=== PATIENT | male | born 1970 | race Hispanic/Latino ===

== ENCOUNTER 2018-10-25 12:00 | Inpatient (IN) | payer MEDICAID, MEDICARE, OTHER ==
[2018-10-25 13:41] LABS: BASO # 0.1 K/uL (0.0-0.2); BASO % 1.2 % (0.0-2.0); EOS # 0.1 K/uL (0.0-0.7); EOS % 1.2 % (0.0-4.0); HEMOGLOBIN 15.6 g/dL (12.0-18.0); LYMPH # 2.1 K/uL (1.0-4.3); LYMPH % 23.6 % (20.0-40.0); MEAN CELL VOLUME 95.8 fL (80.0-94.0); MEAN CORPUSCULAR HEMOGLOBIN 33.2 pg (27.0-31.0); MEAN CORPUSCULAR HGB CONC 34.6 g/dL (33.0-37.0); MEAN PLATELET VOLUME 8.7 fL (7.2-11.7); MONO # 0.6 K/uL (0.0-0.8); MONO % 6.1 % (0.0-10.0); NEUT # 6.2 K/uL (1.8-7.0); NEUT % 67.9 % (50.0-75.0); RBC 4.69 Mil/uL (4.40-5.90); RED CELL DISTRIBUTION WIDTH 13.9 % (11.5-14.5); WHITE BLOOD COUNT 9.1 K/uL (4.8-10.8)
[2018-10-25 13:43] LABS: SQUAMOUS EPITHIAL < 1 /hpf (0-5); URINE BACTERIA OCC (<OCC); URINE BILIRUBIN NEGATIVE (NEGATIVE); URINE BLOOD NEGATIVE (NEGATIVE); URINE CLARITY Clear (Clear); URINE COLOR Yellow (YELLOW); URINE GLUCOSE (UA) NORMAL (Normal); URINE LEUKOCYTE ESTERASE NEG Leu/uL (Negative); URINE PROTEIN 1+ mg/dL (NEGATIVE)
[2018-10-25 13:56] LABS: ALB/GLOB RATIO 1.4 (1.0-2.1); ALBUMIN 4.7 g/dL (3.5-5.0); ALT/SGPT 23 U/L (21-72); AST/SGOT 29 U/L (17-59); BLOOD UREA NITROGEN 21 mg/dL (9-20); CALCIUM 9.9 mg/dl (8.6-10.4); GFR NON-AFRICAN AMERICAN > 60
[2018-10-25 14:00] LABS: BARBITURATES, UR NEGATIVE (NEGATIVE); BENZODIAZEPINES, UR NEGATIVE (NEGATIVE); OPIATES, UR NEGATIVE (NEGATIVE); PHENCYCLIDINE, UR NEGATIVE (NEGATIVE)
--- NOTE | 2018-10-25 15:37 | C.PDOC ---
Chief Complaint (Nursing): Psychiatric Evaluation Past Medical History Vital Signs: Last Vital Signs Temp 98 F 10/25/18 12:34 Pulse 110 H 10/25/18 12:34 Resp 20 10/25/18 12:34 BP 99/63 L 10/25/18 12:34 Pulse Ox 99 10/25/18 12:34 - Medical History PMH: Depression Denies: Diabetes, Hepatitis, HIV, HTN, Chronic Kidney Disease, Seizures, Sexually Transmitted Disease Surgical History: Appendectomy - [facility] Procedures GROUP PSYCHOTHERAPY (09/21/18) INDIVIDUAL PSYCHOTHERAPY, COGNITIVE-BEHAVIORAL (09/21/18) INDIVIDUAL PSYCHOTHERAPY, SUPPORTIVE (09/21/18) REPOSITION RIGHT METACARPAL, EXTERNAL APPROACH (09/21/18) Family History: States: Unknown Family Hx - Social History Hx Alcohol Use: No Hx Substance Use: Yes - Immunization History Hx Tetanus Toxoid Vaccination: No Hx Influenza Vaccination: No Hx Pneumococcal Vaccination: No ED Course And Treatment - Laboratory Results Result Diagrams: 10/25/18 13:31 10/25/18 13:31 Lab Results: Total Bilirubin 0.6 mg/dL (0.2-1.3) 10/25/18 13:31 AST 29 U/L (17-59) 10/25/18 13:31 ALT 23 U/L (21-72) 10/25/18 13:31 Alkaline Phosphatase 81 U/L (38-126) 10/25/18 13:31 Total Protein 8.1 g/dL (6.3-8.3) 10/25/18 13:31 Albumin 4.7 g/dL (3.5-5.0) 10/25/18 13:31 Globulin 3.4 gm/dL (2.2-3.9) 10/25/18 13:31 Albumin/Globulin Ratio 1.4 (1.0-2.1) 10/25/18 13:31 Urine Color Yellow (YELLOW) 10/25/18 13:31 Urine Clarity Clear (Clear) 10/25/18 13:31 Urine pH 6.0 (5.0-8.0) 10/25/18 13:31 Ur Specific [place] 1.023 (1.003-1.030) 10/25/18 13:31 Urine Protein 1+ mg/dL (NEGATIVE) H 10/25/18 13:31 Urine Glucose (UA) Normal mg/dL (Normal) 10/25/18 13:31 Urine Ketones 1+ mg/dL (NEGATIVE) H 10/25/18 13:31 Urine Blood Negative (NEGATIVE) 10/25/18 13:31 Urine Nitrate Negative (NEGATIVE) 10/25/18 13:31 Urine Bilirubin Negative (NEGATIVE) 10/25/18 13:31 Urine Urobilinogen 2.0 mg/dL (0.2-1.0) 10/25/18 13:31 Ur Leukocyte Esterase Neg [place]/uL (Negative) 10/25/18 13:31 Urine WBC (Auto) 2 /hpf (0-5) 10/25/18 13:31 Urine RBC (Auto) < 1 /hpf (0-3) 10/25/18 13:31 Ur Squamous Epith Cells < 1 /hpf (0-5) 10/25/18 13:31 Urine Bacteria Occ (<OCC) H 10/25/18 13:31 O2 Sat by Pulse Oximetry: 99 Progress Note: Patient was medically cleared and is stable for psych admission Disposition - Disposition Disposition: HOSPITALIZED Disposition Time: 15:36 Condition: STABLE - Clinical Impression Clinical Impression: Depression Decision To Admit - Pt Status Changed To: Hospital Disposition Of: Inpatient - Admit Certification Admit to Inpatient:: After my assessment, the patient will require hospitalization for at least two midnights. This is because of the severity of symptoms shown, intensity of services needed, and/or the medical risk in this patient being treated as an outpatient. - InPatient: Physician Admission Certification: I certify that this patient requires 2 or more midnights of care for the following reason:: Patient will need more than 2 days of an admission - . Bed Request Type: Psychiatry Admitting Physician: Akhil Van Patient Diagnosis: Depression
--- NOTE | 2018-10-25 18:10 | PCM.BM ---
<Rick Meyer - Last Filed: 10/25/18 18:08> Treatment Plan Problems - Problems identified on initial assessmt Depression Date Initiated: 10/25/18 Time Initiated: 18:08 Assessment reference: NA Status: Active Treatment assets and liabiliti Patient Assests: cooperative, self-reliant, ADL independent, negotiates basic needs Patient Liabilities: financial problems (On disability), poor support system, substance abuse, medical problems (Memory problems ) - Milieu Protocol Maintain good personal hygiene: daily Encourage regular showers, daily Remind patient to perform daily oral care, every shift Assist patient to perform ADL's Conduct patient checks and document Observation sheet: Q15 minutes (For safety) Maintain personal safety: every shift Educate patient to report safety concerns to staff, every shift Monitor environment for contraband/sharps Medication safety: Monitor for expected outcome, potential side effects: every shift, Assess barriers to learning: every shift, Assess readiness for medication education: every shift <Kalani Duncan - Last Filed: 10/26/18 12:19> Family Contact Family involvement: Patient does not wish Family/SO involvement Family contact: Patient declines to allow family contact at present - Goals for Treatment Patient goals for treatment: "I want to go to an outpatient program." Discharge/Continuing Care - Education Needs Education Needs: Patient Medication, Patient Diagnosis/Disease Process, Patient Coping Skills, Patient Placement options, Patient Community resources - Discharge Discharge Criteria: Free of Suicidal thoughts, Normal sleep pattern, Ability to care for self, Reduction of target symptoms Discharge to:: Halfway - Treatment Team Participation Discussed with Family/SO: No Was Patient/Family/SO present at Treatment Team Meeting: Yes <Akhil Van - Last Filed: 10/28/18 10:13> - Diagnosis (1) Depression Status: Acute Interventions: 10/28/18 10:13 * Assess/adjust medications daily and /or as needed * See patient on an individual basis 7x/week to assess symptoms of depression * Monitor for side effects & effectiveness of medications *
[2018-10-25 18:42] VITALS: O2SAT 99
[2018-10-25] MEDS: Hydrocortisone 1% Cream (30 GM) TOP PRN (22:02)
--- NOTE | 2018-10-25 22:55 | C.PDOC ---
History Of Present Illness 48 year old male presents to the ED for psychiatric evaluation of depression and suicidal ideation. Patient states he was placed on psychiatric medications (cannot recall names) which were stolen, and he has not taken his medications in more than one month. Patient denies suicidal plan or homicidal ideation at this time. Chief Complaint (Nursing): Psychiatric Evaluation History Per: Patient History/Exam Limitations: no limitations Onset/Duration Of Symptoms: Days Current Symptoms Are (Timing): Still Present Suicide/Self Injury Attempted (Context): None Associated Symptoms: Suicidal Thoughts. denies: Suicidal Plan Involuntary Hold By: None Recent travel outside of the [place]: No Additional History Per: Patient Past Medical History Reviewed: Historical Data, Nursing Documentation, Vital Signs Vital Signs: Last Vital Signs Temp 98.6 F 10/25/18 15:57 Pulse 82 10/25/18 15:57 Resp 18 10/25/18 15:57 BP 101/65 10/25/18 15:57 Pulse Ox 99 10/25/18 18:42 - Medical History PMH: Depression Denies: Diabetes, Hepatitis, HIV, HTN, Chronic Kidney Disease, Seizures, Sexually Transmitted Disease Surgical History: Appendectomy - [facility] Procedures GROUP PSYCHOTHERAPY (09/21/18) INDIVIDUAL PSYCHOTHERAPY, COGNITIVE-BEHAVIORAL (09/21/18) INDIVIDUAL PSYCHOTHERAPY, SUPPORTIVE (09/21/18) REPOSITION RIGHT METACARPAL, EXTERNAL APPROACH (09/21/18) Family History: States: Unknown Family Hx - Social History Hx Alcohol Use: No Hx Substance Use: Yes - Immunization History Hx Tetanus Toxoid Vaccination: No Hx Influenza Vaccination: No Hx Pneumococcal Vaccination: No Review Of Systems Psych: Positive for: Suicidal ideation. Negative for: Other (suicidal plan or homicidal ideation ) Physical Exam - Physical Exam Appears: Non-toxic, No Acute Distress Skin: Normal Color, Warm, Dry Head: Atraumatic, Normacephalic Eye(s): bilateral: Normal Inspection Oral Mucosa: Moist Chest: Symmetrical, No Deformity Cardiovascular: Rhythm Regular, No Murmur Respiratory: Normal Breath Sounds, No Rales, No Rhonchi, No Wheezing Extremity: Normal ROM Neurological/Psych: Oriented x3, Normal Speech, Normal Cognition ED Course And Treatment - Laboratory Results Result Diagrams: 10/25/18 13:31 10/25/18 13:31 Lab Results: Total Bilirubin 0.6 mg/dL (0.2-1.3) 10/25/18 13:31 AST 29 U/L (17-59) 10/25/18 13:31 ALT 23 U/L (21-72) 10/25/18 13:31 Alkaline Phosphatase 81 U/L (38-126) 10/25/18 13:31 Total Protein 8.1 g/dL (6.3-8.3) 10/25/18 13:31 Albumin 4.7 g/dL (3.5-5.0) 10/25/18 13:31 Globulin 3.4 gm/dL (2.2-3.9) 10/25/18 13:31 Albumin/Globulin Ratio 1.4 (1.0-2.1) 10/25/18 13:31 Urine Color Yellow (YELLOW) 10/25/18 13:31 Urine Clarity Clear (Clear) 10/25/18 13:31 Urine pH 6.0 (5.0-8.0) 10/25/18 13:31 Ur Specific [place] 1.023 (1.003-1.030) 10/25/18 13:31 Urine Protein 1+ mg/dL (NEGATIVE) H 10/25/18 13:31 Urine Glucose (UA) Normal mg/dL (Normal) 10/25/18 13:31 Urine Ketones 1+ mg/dL (NEGATIVE) H 10/25/18 13:31 Urine Blood Negative (NEGATIVE) 10/25/18 13:31 Urine Nitrate Negative (NEGATIVE) 10/25/18 13:31 Urine Bilirubin Negative (NEGATIVE) 10/25/18 13:31 Urine Urobilinogen 2.0 mg/dL (0.2-1.0) 10/25/18 13:31 Ur Leukocyte Esterase Neg [place]/uL (Negative) 10/25/18 13:31 Urine WBC (Auto) 2 /hpf (0-5) 10/25/18 13:31 Urine RBC (Auto) < 1 /hpf (0-3) 10/25/18 13:31 Ur Squamous Epith Cells < 1 /hpf (0-5) 10/25/18 13:31 Urine Bacteria Occ (<OCC) H 10/25/18 13:31 O2 Sat by Pulse Oximetry: 99 (on RA) Pulse Ox Interpretation: Normal Progress Note: Bloodwork and urinalysis were ordered and reviewed. Patient has been medically cleared and accepted by Dr. Van for further evaluation. Disposition - Disposition Disposition: HOSPITALIZED Disposition Time: 15:35 Condition: STABLE - Clinical Impression Clinical Impression: Depression - PA / CULTURE MANAGER / Resident Statement MD/DO has reviewed & agrees with the documentation as recorded. - Scribe Statement The provider has reviewed the documentation as recorded by the Scribe (Tennille Marina) All medical record entries made by the Scribe were at my direction and personall y dictated by me. I have reviewed the chart and agree that the record accurately reflects my personal performance of the history, physical exam, medical decision making, and the department course for this patient. I have also personally directed, reviewed, and agree with the discharge instructions and disposition.
--- NOTE | 2018-10-26 13:01 | PCM.PSYCH ---
Initial Psychiatric Evaluation - Initial Psychiatric Evaluation Type of Admission: Voluntary Legal Status: Capacity Chief Complaint (in patient's own words): "I was feeling depressed, can't focus, and thought of laying down on the train tracks to kill myself" History of Present Illness and Precipitating Events: 48 year old male, who has a girlfriend, is unemployed and homeless presents to the ED for suicidal thoughts. Pt has a history of Bipolar Disorder and reports two inpatient psychiatric hospitalizations previously. Pt reports that he has been feeling this way since 2-3 weeks ago when he lost his medication. He states that he wanted to kill himself by laying down on the train tracks but decided against it and came to the hospital to get help and medication. Pt states he is currently with a girlfriend who has not been supportive in his attempts to secure housing. Pt states he is sick of being homeless and wants to change. Pt states he is good at listening to directions and therefore knows he can change. Pt wants help for his lack of focus and depressed mood. Pt states he can't focus and is feeling depressed and down. Pt appears anxious and speech is pressured. Pt denies feeling irritated, denies auditory or visual hallucinations, paranoia, denies alcohol or drug abuse. Past Psych Hx: Depression, Bipolar, Disorder PMH: denies Meds: Depakote, Trazadone Current Medications: Active Medications Generic Name Dose Route Start Last Admin Trade Name Freq PRN Reason Stop Dose Admin Gabapentin 100 mg 10/26/18 08:41 10/26/18 09:45 Neurontin PO 100 mg TID PRN Administration Anxiety Hydrocortisone 1 gm 10/25/18 20:00 10/25/18 22:02 Cortizone 1% Cream TOP 1 applic Q6 PRN Administration Itching / Pruritus Hydroxyzine HCl 25 mg 10/25/18 22:00 10/25/18 22:02 Atarax PO 25 mg Q6 PRN Administration Anxiety Influenza Virus Vaccine 60 mcg 10/27/18 10:00 Flucelvax Quad [id number] Syr IM 10/27/18 10:01 .ONCE ONE Oxcarbazepine 300 mg 10/26/18 10:00 10/26/18 09:45 Trileptal PO 300 mg DAILY JAIME Administration Oxcarbazepine 300 mg 10/26/18 22:00 Trileptal PO HS JAIME Pneumococcal Polyvalent Vaccine 0.5 ml 10/27/18 10:00 Pneumovax 23 Vaccine IM 10/27/18 10:01 .ONCE ONE Quetiapine Fumarate 50 mg 10/26/18 22:00 Seroquel PO HS [facility] Trazodone HCl 50 mg 10/25/18 22:00 10/25/18 21:56 Desyrel PO 50 mg HS [facility] Administration Past Psychiatric History - Past Psychiatric History Previous Treatment History: Inpatient Pertinent Medical Hx (Current Medical&Sleep Prob, Allergies): Allergies Allergy/AdvReac Type Severity Reaction Status Date / Time No Known Allergies Allergy Verified 10/14/18 13:38 Donepezil [Aricept] 5 mg PO HS 30 Days #30 tab 08/22/18 Gabapentin [Neurontin] 100 mg PO TID PRN 30 Days #90 cap 08/22/18 OXcarbazepine [Trileptal] 300 mg PO DAILY 30 Days #30 tab 08/22/18 OXcarbazepine [Trileptal] 300 mg PO HS 30 Days #30 tab 08/22/18 traZODone [Desyrel] 50 mg PO HS 30 Days #30 tab 08/22/18 DiphenhydrAMINE [Benadryl] 50 mg PO DAILY #30 cap 09/30/18 QUEtiapine [SEROquel] 50 mg PO HS #30 tab 09/30/18 traZODone [Desyrel] 100 mg PO HS PRN #30 tab 09/30/18 Permethrin [Elimite] 60 gm TP ONCE #1 cream..g. 10/14/18 Review of Systems - Review of Systems All systems: reviewed and no additional remarkable complaints except - Psychiatric Psychiatric: Anxiety, Irritability, Suicidal Ideation Mental Status Examination - Personal Presentation Personal Presentation: Looks stated age - Affect Affect: Constricted, Depressed - Motor Activity Motor Activity: Calm - Reliability in Providing Information Reliability in Providing Information: Fair - Speech Speech: Organized - Mood Mood: Depressed, Anxious - Formal Thought Process Formal Thought Process: No Impairment - Obsessions/Compulsions Obsessions: No Compulsions: No - Cognitive Functions Orientation: Person, Place, Situation, Time Sensorium: Alert Attention/Concentration: Attentive Abstract Thinking: [place] Estimate of Intelligence: Below average Judgement: Imparied, as evidence by: Poor judgement, Imparied, as evidence by: Lack of insight into illness - Risk Risk: Suicidal, Diminished functioning - Limitations Limitations: Living alone DSM 5 DX - DSM 5 DSM 5 Diagnosis: Bipolar depressed severe without psychotic features - Recommended/Plan of Treatment Treatment Recommendations and Plan of Treatment: Bipolar depressed severe without psychotic features CBT Psychoeducation Supportive therapy and group therapy and milieu therapy Trazodone 50 mg p.o. nightly Hydroxyzine 25 mg p.o. every 6 hours as needed Gabapentin 100 mg p.o. 3 times daily Trileptal 150 mg p.o. twice daily Remeron 15 mg p.o. nightly - Smoking Cessation Smoking Cessation Initiated: No
[2018-10-26] MEDS: Hydrocortisone 1% Cream (30 GM) TOP PRN (13:43)
[2018-10-26] MEDS ORDERED: Vitamins A & D Oint UD Foilpak TOP PRN (19:41)
[2018-10-27] MEDS ORDERED: Influenza Vaccine 60 mcg/0.5 mL SYR (4YR UP) IM ONE (10:00)
[2018-10-27] MEDS ORDERED: Pneumococcal 23-Valent Vaccine IM ONE (10:00)
--- NOTE | 2018-10-27 14:33 | PCM.PYCHPN ---
Psychiatric Progress Note - Psychiatric Progress Note Patient seen today, length of contact: 16 min Patient Chief Complaint: "I was feeling depressed." Problems Identified/Issues Discussed: Patient was seen and evaluated, chart reviewed and discussed the staff. Patient reports depressed mood, at times feelings of hopelessness and helplessness. He reports some improvement in his irritability and agitation. He reports that he is developing a rash from a medication. However he denies any other reactions from the medications He denies any auditory hallucinations or any paranoia. Symptoms are improving gradually but he needs more time to stabilize. Supportive therapy was given Medication Change: Yes Medical Record Reviewed: Yes Mental Status Examination - Cognitive Function Orientation: Person, Place, Situation, Time Memory: Intact Attention: WNL Concentration: Poor Association: WNL Fund of Knowledge: Poor - Mood Mood: Depressed, Anxious - Affect Affect: Constricted, Depressed - Speech Speech: Soft - Formal Thought Process Formal Thought Process: No Impairment - Suicidal Ideation Suicidal Ideation: No - Homicidal Ideation Homicidal Ideation: No Goal/Treatment Plan - Goal/Treatment Plan Need for Continued Stay: Severe depression anxiety, Severe functional impairment Progress Toward Problem(s) and Goals/Treatment Plan: Bipolar depressed severe without psychotic features CBT Psychoeducation Supportive therapy and group therapy and milieu therapy Trazodone 50 mg p.o. nightly Hydroxyzine 25 mg p.o. every 6 hours as needed Gabapentin 100 mg p.o. 3 times daily Trileptal 150 mg p.o. twice daily Remeron 15 mg p.o. nightly D/C Seroquel 50 mg P QHS - Smoking Cessation Smoking Cessation Initiated: No
[2018-10-30 06:40] VITALS: RESP 18
--- NOTE | 2018-10-30 23:09 | PCM.PYCHPN ---
Psychiatric Progress Note - Psychiatric Progress Note Patient seen today, length of contact: 16 min Medication Change: Yes Medical Record Reviewed: Yes Mental Status Examination - Cognitive Function Orientation: Person, Place, Situation, Time Memory: Intact Attention: WNL Concentration: Poor Association: WNL Fund of Knowledge: Poor - Mood Mood: Depressed, Anxious - Affect Affect: Constricted, Depressed - Speech Speech: Soft - Formal Thought Process Formal Thought Process: No Impairment - Suicidal Ideation Suicidal Ideation: No - Homicidal Ideation Homicidal Ideation: No Goal/Treatment Plan - Goal/Treatment Plan Need for Continued Stay: Severe depression anxiety, Severe functional impairment
[2018-10-31] MEDS: Hydrocortisone 1% Cream (30 GM) TOP PRN (16:25)
[2018-11-01 06:46] VITALS: TEMP 98.4
[2018-11-01 09:31] VITALS: BP 105/73; PULSE 101
--- NOTE | 2018-11-01 09:54 | PCM.PYCHDC ---
Mental Status Examination - Mental Status Examination Orientation: Person, Place, Situation, Time Memory: Intact Mood: Neutral Affect: Constricted Speech: Soft Attention: WNL Concentration: WNL Association: WNL Fund of Knowledge: WNL Formal Thought Process: No Impairment Description of patient's judgement and insight: good, fair Psychotic Thoughts and Behaviors: denies any AVH Suicidal Ideation: No Current Homicidal Ideation?: No Discharge Summary - Discharge Note Reason for Hospitalization: 48 year old male, who has a girlfriend, is unemployed and homeless presents to the ED for suicidal thoughts. Pt has a history of Bipolar Disorder and reports two inpatient psychiatric hospitalizations previously. Pt reports that he has been feeling this way since 2-3 weeks ago when he lost his medication. He states that he wanted to kill himself by laying down on the train tracks but decided against it and came to the hospital to get help and medication. Pt states he is currently with a girlfriend who has not been supportive in his attempts to secure housing. Pt states he is sick of being homeless and wants to change. Pt states he is good at listening to directions and therefore knows he can change. Pt wants help for his lack of focus and depressed mood. Pt states he can't focus and is feeling depressed and down. Pt appears anxious and speech is pressured. Pt denies feeling irritated, denies auditory or visual hallucinations, paranoia, denies alcohol or drug abuse. Consultations:: List each consultation separately and include: 1. Reason for request. 2. Findings. 3. Follow-up Summary of Hospital Course include:: 1. Description of specific treatment plan utilized for patients during their course of treatmen. 2. Summarize the time- course for resolution of acute symptoms and/or regressed behaviors. 3. Describe issues identified and worked on during hospitalization. 4. Describe medication utilized. 5. Describe medical problems identified and treated. 6. Reassessment of suicide risk Summary of Hospital Course: 48 year old male, who has a girlfriend, is unemployed and homeless presents to the ED for suicidal thoughts. Pt has a history of Bipolar Disorder and reports two inpatient psychiatric hospitalizations previously. Pt reports that he has been feeling this way since 2-3 weeks ago when he lost his medication. He states that he wanted to kill himself by laying down on the train tracks but decided against it and came to the hospital to get help and medication. Pt states he is currently with a girlfriend who has not been supportive in his attempts to secure housing. Pt states he is sick of being homeless and wants to change. Pt states he is good at listening to directions and therefore knows he can change. Pt wants help for his lack of focus and depressed mood. Pt states he can't focus and is feeling depressed and down. Pt appears anxious and speech is pressured. Pt denies feeling irritated, denies auditory or visual hallucinations, paranoia, denies alcohol or drug abuse. Past Psych Hx: Depression, Bipolar, Disorder PMH: denies Meds: Depakote, Trazadone - Diagnosis (1) Depression Current Visit: Yes Status: Acute - Final Diagnosis (DSM 5) Condition upon Discharge: STABLE Disposition: HOME/ ROUTINE Follow-up Treatment Plan: Bipolar depressed severe without psychotic features CBT Psychoeducation Supportive therapy and group therapy and milieu therapy Trazodone 50 mg p.o. nightly Hydroxyzine 25 mg p.o. every 6 hours as needed Gabapentin 100 mg p.o. 3 times daily Trileptal 150 mg p.o. twice daily Remeron 15 mg p.o. nightly D/C Seroquel 50 mg P QHS Prescriptions/Medication Reconciliation: Gabapentin [Neurontin] 100 mg PO TID PRN 60 Days #60 cap PRN Reason: Anxiety OXcarbazepine [Trileptal] 150 mg PO BID #60 tab traZODone [Desyrel] 100 mg PO HS #30 tab
== END 2018-11-01 11:47 | disposition home or self-care (01) | DRG 885 ==
LOC: C.ER 12:00 → C.5E 15:35
PROVIDERS: ADMIT Psychiatry & Neurology Psychiatry; ATTEND Psychiatry & Neurology Psychiatry
PROC: GZHZZZZ Group Psychotherapy (ICD-10-PCS; principal; 2018-10-25)
PROC: GZ58ZZZ Individual Psychotherapy, Cognitive-Behavioral (ICD-10-PCS; 2018-10-25)
PROC: GZ56ZZZ Individual Psychotherapy, Supportive (ICD-10-PCS; 2018-10-25)
DX: F31.4 Bipolar disorder, current episode depressed, severe, without psychotic features (principal); R45.851 Suicidal ideations; Z59.0 Homelessness